=== PATIENT | male | born 1990 | race African-American/Black ===

== ENCOUNTER 2020-05-16 02:26 | Emergency (ER) | payer BC ==
[2020-05-16 02:43] VITALS: BP 126/81
[2020-05-16] MEDS ORDERED: NYSTATIN/DEXAMETH/DIPHEN SUSP 120 ML PO ONE ×2 (03:06→03:53)
--- NOTE | 2020-05-16 03:09 | ER Document Report ---
ED ENT - General Chief Complaint: Sore Throat Stated Complaint: SORE THROAT Time Seen by Provider: 05/16/20 02:44 Notes: CHIEF COMPLAINT: Sore throat tonight HPI: 22-year-old male presenting for sore throat tonight. Has no COVID-19 concerns. States he had a sore throat a week ago had a negative strep test was given Decadron and sore throat went away but it reoccurred tonight. No fever. No voice change. Took no medications for his symptoms. Denies other complaints including cough, nasal discharge, reflux disease ROS: See HPI - all other systems were reviewed and are otherwise negative Constitutional: no fever Eyes: no drainage, no blurred vision ENT: no runny nose, + sore throat Cardiovascular: no chest pain Resp: no SOB, no cough GI: no vomiting, no diarrhea, no abdominal pain : no dysuria Integumentary: no rash Allergy: no hives Musculoskeletal: no extremity pain or swelling Neurological: no numbness/tingling, no weakness MEDICATIONS: I agree with the patient medications as charted by the RN. ALLERGIES: I agree with the allergies as charted by the RN. PAST MEDICAL HISTORY/PAST SURGICAL HISTORY: Reviewed and agree as charted by RN. SOCIAL HISTORY: Reviewed and agree as charted by RN. FAMILY HISTORY: No significant familial comorbid conditions directly related to patient complaint EXAM: Reviewed vital signs as charted by RN. CONSTITUTIONAL: Alert and oriented and responds appropriately to questions. Well-appearing; well-nourished HEAD: Normocephalic; atraumatic EYES: PERRL; Conjunctivae clear, sclerae non-icteric ENT: normal nose; no rhinorrhea; moist mucous membranes; pharynx without lesions noted, no uvula edema or deviation, no tonsillar hypertrophy, phonation normal NECK: Supple without meningismus; non-tender; no cervical lymphadenopathy, no masses CARD: symmetric distal pulses RESP: Normal chest excursion without splinting or tachypnea ABD/GI: non-distended. BACK: The back appears normal EXT: Normal ROM in all joints; no cyanosis, no effusions, no edema SKIN: Normal color for age and race; warm; dry; good turgor; no acute lesions noted NEURO: Moves all extremities equally; Motor and sensory function intact PSYCH: The patient's mood and manner are appropriate. Grooming and personal hygiene are appropriate. MDM: 30-year-old male with sore throat tonight, no pharyngeal erythema or ulcerations, large differential, will place on Magic mouthwash, refer to ENT, rapid strep negative - Related Data Allergies/Adverse Reactions: No Known Allergies Allergy (Unverified 05/16/20 03:02) Past Medical History - Social History Smoking Status: Never Smoker Family History: Reviewed & Not Pertinent Patient has homicidal ideation: No - Immunizations Immunizations up to date: Yes Hx Diphtheria, Pertussis, Tetanus Vaccination: Yes Physical Exam - Vital signs Vitals: Temp Pulse Resp BP Pulse Ox 98 F 56 L 16 126/81 H 99 05/16/20 02:39 05/16/20 02:39 05/16/20 02:39 05/16/20 02:39 05/16/20 02:39 Course - Vital Signs Vital signs: Temp Pulse Resp BP Pulse Ox 98 F 56 L 16 126/81 H 99 05/16/20 02:39 05/16/20 02:39 05/16/20 02:39 05/16/20 02:39 05/16/20 02:39 Discharge - Discharge Clinical Impression: Sore throat Condition: Stable Disposition: HOME, SELF-CARE Additional Instructions: Strep test was again negative tonight. There is a large number of things that can cause sore throat everything from postnasal drip to snoring to reflux disease to viral etiology. Use the Magic mouthwash to help with the throat discomfort. Follow-up with ENT for further evaluation of your ongoing symptoms Prescriptions: Nystatin/Dexameth/Diphen [Magic Mouthwash (Omh Formula) Susp] 5 ml PO QID #120 ml Referrals: LINDSAY BOND DO [ASSOCIATE] - Follow up as needed
== END 2020-05-16 04:12 | disposition home or self-care (01) ==
LOC: ER 02:26
DX: J02.9 Acute pharyngitis, unspecified (principal)
CPT/HCPCS: 99283; 87070; 87880; J3490